=== PATIENT | male | born 1985 | race African-American/Black ===

== ENCOUNTER 2024-06-12 18:59 | Emergency (ER) | payer OTHER ==
[~2024-06-12] VITALS: Ht 188 cm; Wt 124.7 kg
[2024-06-12] MEDS ORDERED: LIDOCAINE 5% (PATCH) 1 EA PATCH TP ONE (19:47)
[2024-06-12] MEDS ORDERED: ACETAMINOPHEN ES 500 MG TABLET ONE (19:48)
[2024-06-12] MEDS ORDERED: CYCLOBENZAPRINE 10 MG TABLET ONE (19:48)
[2024-06-12] MEDS: CYCLOBENZAPRINE 10 MG TABLET PO ONE (19:51)
[2024-06-12] MEDS: LIDOCAINE 5% (PATCH) 1 EA PATCH TP SCH (19:52)
[2024-06-12] MEDS: ACETAMINOPHEN ES 500 MG TABLET PO ONE (19:52)
[2024-06-12 20:54] VITALS: BP 138/88; TEMP 98.1; O2SAT 97
== END 2024-06-12 20:55 | disposition home or self-care (01) ==
LOC: ER 19:08
DX: M25.562 Pain in left knee (principal); M54.50 Low back pain, unspecified; J45.909 Unspecified asthma, uncomplicated; Z88.6 Allergy status to analgesic agent; V43.52XA Car driver injured in collision with other type car in traffic accident, initial encounter; Y93.89 Activity, other specified; Y92.488 Other paved roadways as the place of occurrence of the external cause; Y99.8 Other external cause status
CPT/HCPCS: 73564-TC